=== PATIENT | male | born 1985 | race Caucasian/White ===

== ENCOUNTER 2018-05-26 13:52 | Inpatient (IN) ==
[2018-05-26] MEDS ORDERED: DULCOLAX PR PRN (17:45)
[2018-05-26] MEDS ORDERED: D5W 1,000 ML IV PRN (17:45)
[2018-05-26] MEDS ORDERED: MAALOX PLUS LIQUID PO PRN (17:45)
[2018-05-26] MEDS ORDERED: DESYREL PO PRN (17:45)
[2018-05-26] MEDS ORDERED: ZOFRAN ODT PO PRN (17:45)
[2018-05-26] MEDS ORDERED: IMODIUM PO PRN (17:45)
[2018-05-26] MEDS ORDERED: SENOKOT PO PRN (17:45)
[2018-05-26] MEDS ORDERED: PHENOBARBITAL IV PRN (17:45)
[2018-05-26] MEDS ORDERED: LIBRIUM PO PRN (17:45)
[2018-05-26] MEDS ORDERED: ZOFRAN IV PRN (17:45)
[2018-05-26] MEDS ORDERED: SINEMET 25/100 PO PRN (17:45)
[2018-05-26] MEDS ORDERED: BENTYL PO PRN (17:45)
[2018-05-26] MEDS ORDERED: ATARAX PO PRN (17:59)
[2018-05-26] MEDS ORDERED: SALINE LOCK IV FLUID XX ONE (17:59)
[2018-05-26] MEDS ORDERED: TUBERSOL ID ONE (18:00)
[2018-05-26 18:50] LABS: URINE SOURCE CLEAN CATCH
[2018-05-26 19:29] LABS: BILIRUBIN URINE NEGATIVE (NEGATIVE); BLOOD URINE NEGATIVE (NEGATIVE); CLARITY CLEAR (CLEAR); COLOR YELLOW; KETONE URINE NEGATIVE (NEGATIVE); LEUKOCYTES URINE NEGATIVE (NEGATIVE); NITRITE URINE NEGATIVE (NEGATIVE); PH URINE 6.5; PROTEIN URINE NEGATIVE (NEGATIVE); UROBILINOGEN URINE NORMAL
[2018-05-26] MEDS: NICODERM PATCH TD PRN (19:38)
[2018-05-26 19:39] LABS: UR AMPHETAMINES QUAL NONE DETECTED (NONE DETECT); UR BARBITUATES QUAL NONE DETECTED (NONE DETECT); UR BENZODIAZEPIN QUAL PRESUMPTIVE POSITIVE (NONE DETECT); UR CANNABINOIDS QUAL PRESUMPTIVE POSITIVE (NONE DETECT); UR COCAINE QUAL NONE DETECTED (NONE DETECT); UR METHADONE QUAL NONE DETECTED (NONE DETECT); UR METHAMPHETAMINE QUAL NONE DETECTED (NONE DETECT); UR OPIATES QUAL NONE DETECTED (NONE DETECT); UR OXYCODONE QUAL NONE DETECTED (NONE DETECT); UR PCP QUAL NONE DETECTED (NONE DETECT); UR PROPOXYPHENE QUAL NONE DETECTED (NONE DETECT); UR TCA QUAL NONE DETECTED (NONE DETECT)
[2018-05-26] MEDS ORDERED: SUBOXONE 2 MG/0.5 MG FILM SL SCH (20:00)
[2018-05-26 20:35] LABS: HEMATOCRIT 37.6 % (42.0-52.0); HEMOGLOBIN 12.9 g/dL (14.0-18.0); MCH 32.9 PG (27-31); MCHC 34.3 g/dL (33-37); MCV 95.9 FL (81-99); RBC 3.92 XMIL (4.7-6.1); RDW 12.5 % (11.5-14.5); WBC 7.3 X1000 (4.8-10.8)
[2018-05-26 20:59] LABS: INR 0.86; PROTIME 12.2 Seconds (11.0-16.0)
[2018-05-26 21:00] LABS: AMYLASE 41 U/L (20-200); LIPASE 41 U/L (13-60)
[2018-05-26] MEDS: TRESIBA FLEXTOUCH U-100 SUBQ SCH (21:00)
[2018-05-26 21:03] LABS: AGAP 10; ALBUMIN 3.6 g/dL (3.5-5.0); ALKALINE PHOSPHATASE 125 U/L (32-122); BUN 16 mg/dL (8-22); CHLORIDE 97 mmol/L (98-107); COSMO 277; CREATININE 0.8 mg/dL (0.7-1.2); ESTIMATED GFR > 60; GLUCOSE 133 mg/dL (70-104); GOT 17 U/L (10-34); GPT 18 U/L (10-44); POTASSIUM 3.5 mmol/L (3.5-5.1); SODIUM 137 mmol/L (136-145); TCO2 30 mmol/L (25-35); TOTAL PROTEIN 6.3 g/dL (6.3-8.3)
[2018-05-26] MEDS: HUMALOG (PARKWAY) SUBQ SCH (23:28)
[2018-05-27] MEDS: LIBRIUM PO SCH ×4 (00:47→18:16)
[2018-05-27] MEDS: PROTONIX PO SCH (06:29)
[2018-05-27] MEDS: HUMALOG (PARKWAY) SUBQ SCH ×4 (07:29→21:33)
[2018-05-27] MEDS: VITAMIN B-1 PO SCH (09:41)
[2018-05-27] MEDS: THERA M PLUS PO SCH (09:41)
[2018-05-27] MEDS: FOLIC ACID PO SCH (09:41)
--- NOTE | 2018-05-27 19:25 | PROGRESS NOTE ---
DATE: 05/27/2018 SUBJECTIVE: Patient notes that overall he has improved. He is having less tremors, denies any current muscle aches, denies any nausea, denies diarrhea or constipation, but states overall his muscle aches have not really gotten better, and he still has a craving for opiates. PHYSICAL EXAMINATION: Vital Signs: Reviewed. Temperature 97.7 degrees, pulse 81, respiratory rate 16, BP 157/55. General: Patient is awake, alert, and currently in no distress. HEENT: Normocephalic, atraumatic. Neck: Supple. CARDIOVASCULAR: Regular rate. Chest: Clear. Abdomen: Soft. Extremities: Moves all extremities. ASSESSMENT: 1. Nausea/vomiting with abdominal pain. 2. Myalgias. 3. Paresthesias. 4. Paroxysmal sweating. 5. Opiate abuse, withdrawal, and admit for stabilization. PLAN: We will continue patient in the hospital. Continue high-dose Librium taper. We will wean as tolerated. Patient is deciding if he wants to be discharged home on Suboxone or go home on nothing. The current plan is to go home without any medication. cc: Hunter Cintron MD
[2018-05-27] MEDS: TRESIBA FLEXTOUCH U-100 SUBQ SCH (21:31)
[2018-05-27] MEDS: NICODERM PATCH TD PRN (21:31)
[2018-05-27] MEDS: ATARAX PO PRN (21:35)
[2018-05-27] MEDS: TYLENOL PO PRN (21:35)
[2018-05-27] MEDS: SEROQUEL PO PRN (21:35)
[2018-05-28] MEDS: LIBRIUM PO SCH ×4 (00:36→16:35)
[2018-05-28] MEDS: PROTONIX PO SCH (06:05)
[2018-05-28] MEDS: HUMALOG (PARKWAY) SUBQ SCH ×4 (06:05→20:41)
[2018-05-28] MEDS: VITAMIN B-1 PO SCH (10:21)
[2018-05-28] MEDS: SUBOXONE 2 MG/0.5 MG FILM SL SCH ×2 (10:22→20:24)
[2018-05-28] MEDS: THERA M PLUS PO SCH (10:22)
[2018-05-28] MEDS: FOLIC ACID PO SCH (10:22)
[2018-05-28] MEDS: ATARAX PO PRN ×3 (10:25→20:26)
[2018-05-28] MEDS: MOTRIN PO PRN (15:30)
[2018-05-28] MEDS: NICODERM PATCH TD PRN (20:25)
[2018-05-28] MEDS: SEROQUEL PO PRN (20:25)
[2018-05-28] MEDS: TRESIBA FLEXTOUCH U-100 SUBQ SCH (20:26)
[2018-05-28] MEDS: ROBAXIN PO PRN (21:54)
[2018-05-28] MEDS: TYLENOL PO PRN (21:54)
[2018-05-29] MEDS: HUMALOG (PARKWAY) SUBQ SCH ×4 (06:26→20:54)
[2018-05-29] MEDS: PROTONIX PO SCH (06:26)
[2018-05-29] MEDS: ATARAX PO PRN ×4 (06:40→23:29)
--- NOTE | 2018-05-29 08:32 | PROGRESS NOTE ---
DATE: 05/28/2018 SUBJECTIVE: Patient seen and examined by myself on the . Notes that he is feeling somewhat better since starting Suboxone. States that he is going to have to go home on Suboxone due to the mental withdrawal issues. Physically, he is feeling better. He is having some myalgias but these are improving. Sweating has resolved. He slept last night. He notes that he was able to eat some yesterday. PHYSICAL EXAMINATION: Vital Signs: Reviewed. He is awake, alert. He is in no distress. HEENT: Normocephalic. Neck: Supple. Cardiovascular: Regular rate. Chest: Clear, nonlabored. Abdomen: Soft, nondistended. Extremities: Moves all extremities. ASSESSMENT: 1. Nausea, vomiting. 2. Abdominal pain. 3. Myalgias. 4. Tremors, resolved. 5. Paresthesias, resolved. 6. Opiate abuse withdrawal and stabilization, improved. 7. Alcohol abuse withdrawal and stabilization, resolved. PLAN: We will continue patient in the hospital, continue to wean Librium. Currently he is on 3 times daily. We will wean to twice daily tomorrow and likely increase Suboxone, continue counseling. Further orders as needed. cc: Hunter Cintron MD
[2018-05-29] MEDS: VITAMIN B-1 PO SCH (09:01)
[2018-05-29] MEDS: FOLIC ACID PO SCH (09:01)
[2018-05-29] MEDS: THERA M PLUS PO SCH (09:01)
[2018-05-29] MEDS: LIBRIUM PO SCH ×2 (09:02→20:51)
[2018-05-29] MEDS: SUBOXONE 2 MG/0.5 MG FILM SL SCH ×2 (09:02→20:51)
[2018-05-29] MEDS: TYLENOL PO PRN ×2 (09:17→23:29)
[2018-05-29] MEDS: MOTRIN PO PRN (17:35)
[2018-05-29] MEDS: TRESIBA FLEXTOUCH U-100 SUBQ SCH (20:50)
[2018-05-29] MEDS: SEROQUEL PO PRN (20:59)
[2018-05-29] MEDS: ROBAXIN PO PRN (23:29)
[2018-05-30] MEDS: PROTONIX PO SCH (06:32)
[2018-05-30] MEDS: HUMALOG (PARKWAY) SUBQ SCH ×2 (06:36→11:33)
--- NOTE | 2018-05-30 07:51 | PROGRESS NOTE ---
DATE: 05/29/2018 SUBJECTIVE: Patient notes that he is starting to feel a little bit better. His muscle aches have improved. Tremors have resolved. Paresthesias improved. He is not having paroxysmal sweating currently. Notes, that he is still not quite feel back to his normal, but is improving. OBJECTIVE: Vital Signs Reviewed: Temp 97 degrees, pulse 74, respiratory 20, BP 104/60. General: Patient is awake, alert. He is in no current respiratory distress. Very pleasant to talk with. HEENT: Normocephalic. Neck: Supple. CARDIOVASCULAR: Regular rate. Chest: Clear and nonlabored. Abdomen: Soft and nondistended. Extremities: Moves all extremities. Neurologic: No focal changes. ASSESSMENT: 1. Nausea and vomiting. 2. Abdominal pain. 3. Tremors. 4. Myalgias. 5. Paresthesias. 6. Paroxysmal sweating. 7. Alcohol abuse withdrawal and stabilization. 8. Opiate abuse withdrawal and stabilization. PLAN: The patient has improved from an alcohol standpoint. We will continue to wean his Librium. His tremors and paresthesias have resolved. He is still having issues with opiate withdrawal. We started him on low dose Suboxone at 2 mg. will increase the dose this morning. We will continue to follow. Hopefully, he can be discharged over the next 1 or 2 days. cc: Hunter Cintron MD
[2018-05-30 08:12] VITALS: BP 103/53
[2018-05-30] MEDS ORDERED: FLU VACCINE IM ONE (08:30)
[2018-05-30] MEDS: SUBOXONE 2 MG/0.5 MG FILM SL SCH (08:32)
[2018-05-30] MEDS: LIBRIUM PO SCH (08:32)
[2018-05-30] MEDS: FOLIC ACID PO SCH (08:32)
[2018-05-30] MEDS: THERA M PLUS PO SCH (08:32)
[2018-05-30] MEDS: VITAMIN B-1 PO SCH (08:32)
[2018-05-30] MEDS: ATARAX PO PRN (10:11)
[2018-05-30] MEDS ORDERED: TRESIBA FLEXTOUCH U-100 SUBQ SCH (21:00)
--- NOTE | 2018-06-01 13:02 | HISTORY AND PHYSICAL ---
CHIEF COMPLAINT: Nausea, vomiting. HISTORY OF PRESENT ILLNESS: The patient is a 33-year-old male who presented to [facility] secondary to nausea, vomiting, abdominal pain, tremors and myalgias. He states he has been using and abusing opiates. He has been trying to stop. His withdrawal symptoms have become too severe. Notes that it has recently started affecting his blood sugar control as well. SOCIAL HISTORY: Patient is . He is currently employed at [employer]. Lives in [place], [place]. PAST MEDICAL HISTORY: Type 1 diabetes was diagnosed approximately 3 years ago. He has chronic anxiety, depression, frequent urinary difficulties. He has had renal stones. MEDICATIONS: Tramadol 50 mg twice daily and 200 mg ER at bedtime, Lyrica 150 b.i.d., [place] 10 b.i.d., insulin, Zanaflex. ALLERGIES: No known drug allergies. REVIEW OF SYSTEMS: CINA score is elevated secondary to nausea, vomiting, abdominal pain, tremors, myalgias, paresthesias, paroxysmal sweating. His blood sugars have been elevated, likely secondary to some of his withdrawal symptoms. Patient denies any chest pain, palpitations. Denies fevers or chills. Denies any dysuria, frequency, or urgency. Denies polyuria or polydipsia, skin rashes. FAMILY HISTORY: Positive for diabetes, but no family history of polysubstance abuse. SUBSTANCE ABUSE HISTORY: The patient has not been in treatment facility in the past. He started drinking alcohol as a teenager, currently drinking up to 6 beers a day. He started marijuana as a teenager, uses very rarely each day. Started depressants in early 20s. Currently uses occasionally. Started opiates in his 30's. Currently is up to 60 to 70 mg daily. He also occasionally buys methadone off the street, but has not done in the past few years. PHYSICAL EXAMINATION: VITAL SIGNS: Reviewed and stable. GENERAL: Patient is awake, alert, oriented. He is in no current respiratory distress. HEENT: Normocephalic, atraumatic. IVETH. NECK: Supple. No JVD. CARDIOVASCULAR: Regular rate and rhythm. No murmurs. CHEST: Clear, nonlabored. ABDOMEN: Soft, nondistended, nontender. EXTREMITIES: Moves all extremities well. NEUROLOGIC: No focal changes. SKIN: Warm, dry, no rashes. ASSESSMENT: 1. Nausea, vomiting. 2. Abdominal pain. 3. Myalgias. 4. Paresthesias. 5. Paroxysmal sweating. 6. Opiate use and abuse. 7. Alcohol use and abuse. 8. Type 1 diabetes with hyperglycemia. PLAN: We will admit patient to hospital. We will continue his diabetic control. We will not adjust his insulin yet, but we will use sliding scale as I am uncertain of how well he will eat and drink over the next day or two as his withdrawal symptoms come about. We will place him on Suboxone, begin counseling. Further orders as needed. cc: Hunter Cintron MD
--- NOTE | 2018-06-01 13:21 | DISCHARGE SUMMARY ---
ADMISSION DATE: 05/26/2018 DISCHARGE DATE: 05/30/2018 DISCHARGE DIAGNOSES: 1. Nausea/vomiting. 2. Abdominal pain. 3. Myalgias. 4. Type 1 diabetes. 5. Opiate abuse withdrawal and stabilization. 6. Paresthesias. CONSULTATIONS: None. PROCEDURES: None. BRIEF HOSPITAL COURSE: The patient is a 33-year-old male who presented to [facility] secondary to nausea/vomiting, abdominal pain, myalgias, paresthesias. Thankfully, he had an uneventful hospital course. He was admitted, placed on Suboxone which he tolerated very well. His blood sugars did remain elevated, and his insulin Tresiba was increased slightly prior to discharge. On discharge, patient is awake, alert. He is thankfully feeling much better. DISPOSITION: Patient will be discharged home. DISCHARGE INSTRUCTIONS: Discussed with him that he needs to avoid all persons, places, situations in which he has been using and abusing in the past. He needs outpatient life counseling as well as drug counseling. He needs to follow up outpatient with treatment facility of choice. COORDINATION TIME: Greater than 30 minutes was spent in total care. cc: Hunter Cintron MD
== END 2018-05-30 12:25 | disposition home or self-care (01) | DRG 897 ==
LOC: P.DIRADM 15:24 → P.MEDSURG 16:00
PROVIDERS: ADMIT Family Medicine; ATTEND Family Medicine
CPT/HCPCS: 80053; 80104; 80301; 80305; 80307; 80320; 82055; 82150; 82948; 83690; 85027; 85610; 86580; 90686; A9270; G0431; G0434; G0477; G0480; G6040; J1815; XXXXX